=== PATIENT | male | born 1990 | race Caucasian/White ===

== ENCOUNTER 2016-10-28 14:11 | Observation (INO) | payer MEDICAID ==
[~2016-10-28] VITALS: Ht 175.3 cm; Wt 100.2 kg
[2016-10-28 15:19] LABS: HEMATOCRIT 43.9 % (39.2-51.8); HEMOGLOBIN 14.5 g/dL (13.7-18.0); WHITE BLOOD COUNT 10.5 x10^3/uL (3.4-10)
[2016-10-28 15:26] LABS: BLOOD UREA NITROGEN 11 mg/dL (7-18)
[2016-10-28 15:27] LABS: ACETAMINOPHEN < 2 mcg/mL (10-30)
[2016-10-28] MEDS ORDERED: LORazepam 1MG TABLET ONE (17:47)
[2016-10-28] MEDS: LORazepam 1MG TABLET PO PRN (17:49)
[2016-10-28] MEDS: VALPROIC ACID 250 MG CAPSULE PO SCH (17:51)
[2016-10-28] MEDS ORDERED: LABETALOL 5MG/ML, 20ML IVPush PRN (18:00)
[2016-10-28] MEDS ORDERED: GUAIFENESIN/DM 200-20MG, 10ML UDC PO PRN (18:00)
[2016-10-28] MEDS ORDERED: ONDANSETRON 2MG/ML, 2ML IVPush PRN (18:00)
[2016-10-28 18:44] LABS: DAU SCREEN DISCLAIMER
[2016-10-28] MEDS: QUETIAPINE 100MG TABLET PO SCH (21:07)
[2016-10-28 21:53] VITALS: BP 121/88
[2016-10-29] MEDS: VALPROIC ACID 250 MG CAPSULE PO SCH ×4 (00:47→20:48)
[2016-10-29 01:10] VITALS: BP 109/70
[2016-10-29 01:18] VITALS: BP 111/77
[2016-10-29] MEDS: QUETIAPINE 100MG TABLET PO SCH ×2 (08:43→11:48)
[2016-10-29] MEDS ORDERED: LORA1TAB PO (12:36)
[2016-10-29] MEDS ORDERED: SERT100T5 PO (12:36)
[2016-10-29] MEDS ORDERED: DIVA250T4 PO (12:36)
[2016-10-29] MEDS ORDERED: FLUT12AE INH (12:36)
[2016-10-29] MEDS ORDERED: CETI10TA32 PO (12:36)
[2016-10-29] MEDS ORDERED: QUET25TA5 PO (12:36)
[2016-10-29] MEDS: QUETIAPINE 25MG TABLET PO SCH (20:47)
[2016-10-29] MEDS: FLUTICASONE FUROATE 100MCG/INH INH SCH (20:55)
[2016-10-29 21:11] VITALS: BP 118/78
[2016-10-30 03:00] VITALS: BP 106/55
[2016-10-30 07:10] VITALS: BP 94/62
[2016-10-30] MEDS: QUETIAPINE 25MG TABLET PO SCH ×2 (08:43→20:56)
[2016-10-30] MEDS: VALPROIC ACID 250 MG CAPSULE PO SCH ×2 (08:43→20:55)
[2016-10-30] MEDS: SERTRALINE 100MG TABLET PO SCH ×3 (08:43→09:00)
[2016-10-30] MEDS: FLUTICASONE FUROATE 100MCG/INH INH SCH (08:46)
[2016-10-30 13:41] VITALS: BP 92/55
[2016-10-30 19:50] VITALS: BP 120/75
[2016-10-30] MEDS: ACETAMINOPHEN 325 MG TABLET PO PRN (20:56)
[2016-10-31] MEDS: VALPROIC ACID 250 MG CAPSULE PO SCH ×2 (09:25→19:58)
[2016-10-31] MEDS: QUETIAPINE 25MG TABLET PO SCH ×2 (09:25→19:58)
[2016-10-31] MEDS: SERTRALINE 100MG TABLET PO SCH (09:25)
[2016-10-31] MEDS: FLUTICASONE FUROATE 100MCG/INH INH SCH (09:25)
[2016-10-31 11:10] VITALS: BP 96/56
[2016-10-31 12:22] VITALS: BP 96/67
[2016-10-31] MEDS ORDERED: ZIPRASIDONE 20MG CAPSULE PO PRN (18:00)
[2016-10-31] MEDS ORDERED: ZIPRASIDONE 20 MG INJ IM PRN (18:00)
[2016-11-01 08:12] VITALS: BP 93/60
[2016-11-01] MEDS: QUETIAPINE 25MG TABLET PO SCH ×2 (08:40→20:01)
[2016-11-01] MEDS: VALPROIC ACID 250 MG CAPSULE PO SCH ×2 (08:40→20:00)
[2016-11-01] MEDS: SERTRALINE 100MG TABLET PO SCH (08:40)
[2016-11-01] MEDS: FLUTICASONE FUROATE 100MCG/INH INH SCH (12:14)
[2016-11-01] MEDS: LORazepam 1MG TABLET PO PRN (13:29)
[2016-11-01] MEDS ORDERED: ZIPRASIDONE 20 MG INJ IM PRN (19:00)
[2016-11-01] MEDS ORDERED: GUAIFENESIN/DM 200-20MG, 10ML UDC PO PRN (19:00)
[2016-11-01] MEDS ORDERED: ONDANSETRON 2MG/ML, 2ML IVPush PRN (19:00)
[2016-11-02 07:10] VITALS: BP 113/78
[2016-11-02] MEDS: LORazepam 1MG TABLET PO PRN (08:36)
[2016-11-02] MEDS: FLUTICASONE FUROATE 100MCG/INH INH SCH (08:36)
[2016-11-02] MEDS: VALPROIC ACID 250 MG CAPSULE PO SCH ×2 (08:36→19:36)
[2016-11-02] MEDS: SERTRALINE 100MG TABLET PO SCH (08:36)
[2016-11-02] MEDS: QUETIAPINE 25MG TABLET PO SCH ×2 (08:36→19:36)
[2016-11-02] MEDS: ACETAMINOPHEN 325 MG TABLET PO PRN (15:49)
[2016-11-02 20:44] VITALS: BP 118/82
[2016-11-02] MEDS: ZIPRASIDONE 20MG CAPSULE PO PRN (23:56)
[2016-11-03 07:30] VITALS: BP 120/91
[2016-11-03] MEDS: QUETIAPINE 25MG TABLET PO SCH ×2 (08:47→19:54)
[2016-11-03] MEDS: SERTRALINE 100MG TABLET PO SCH (08:48)
[2016-11-03] MEDS: FLUTICASONE FUROATE 100MCG/INH INH SCH (08:48)
[2016-11-03] MEDS: VALPROIC ACID 250 MG CAPSULE PO SCH ×2 (08:48→19:54)
[2016-11-03 19:11] VITALS: BP 129/84
[2016-11-03] MEDS: ZIPRASIDONE 20MG CAPSULE PO PRN (23:36)
[2016-11-04] MEDS: VALPROIC ACID 250 MG CAPSULE PO SCH ×2 (08:31→20:51)
[2016-11-04] MEDS: QUETIAPINE 25MG TABLET PO SCH ×3 (08:31→20:38)
[2016-11-04] MEDS: SERTRALINE 100MG TABLET PO SCH (08:31)
[2016-11-04] MEDS: FLUTICASONE FUROATE 100MCG/INH INH SCH (08:33)
[2016-11-04 19:48] VITALS: BP 136/85
[2016-11-04] MEDS ORDERED: QUETIAPINE 25MG TABLET PO SCH (21:00)
[2016-11-05 08:17] VITALS: BP 93/57
[2016-11-05] MEDS: FLUTICASONE FUROATE 100MCG/INH INH SCH (08:40)
[2016-11-05] MEDS: SERTRALINE 100MG TABLET PO SCH (08:40)
[2016-11-05] MEDS: QUETIAPINE 25MG TABLET PO SCH ×2 (08:42)
[2016-11-05] MEDS: VALPROIC ACID 250 MG CAPSULE PO SCH (08:42)
[2016-11-05] MEDS ORDERED: LORazepam 1MG TABLET PO PRN (12:30)
== END 2016-11-05 13:16 | disposition home or self-care (01) ==
LOC: ED 15:41 → EDIP 16:53 → 3NE 21:45 → 3E 10-31 15:53
PROVIDERS: ADMIT Internal Medicine; ATTEND Family Medicine
DX: R45.851 Suicidal ideations (principal); J45.909 Unspecified asthma, uncomplicated; F72 Severe intellectual disabilities; G47.33 Obstructive sleep apnea (adult) (pediatric); R60.0 Localized edema; E66.9 Obesity, unspecified; F31.9 Bipolar disorder, unspecified; I51.7 Cardiomegaly; Z87.891 Personal history of nicotine dependence; Z91.14 Patient's other noncompliance with medication regimen; Z91.19 Patient's noncompliance with other medical treatment and regimen
CPT/HCPCS: 36415; 80048; 80164; 80307; 80329; 81003; 82040; 85025; 99285; G0378; G0480

== ENCOUNTER 2017-02-05 16:31 | Emergency (ER) | payer MEDICAID ==
[~2017-02-05] VITALS: Ht 162.6 cm; Wt 114.0 kg
[~2017-02-05 16:31] MED LIST: CETI10TA32 PO; DIVA250T4 PO; FLUT12AE INH; LORA1TAB PO; QUET25TA5 PO; SERT100T5 PO
[2017-02-05 18:22] LABS: HEMOGLOBIN 14.2 g/dL (13.7-18.0); WHITE BLOOD COUNT 9.6 x10^3/uL (3.4-10)
[2017-02-05 18:29] LABS: ASPARTATE AMINO TRANSFERASE 38 U/L (15-37); BLOOD UREA NITROGEN 16 mg/dL (7-18)
[2017-02-05 18:32] LABS: ACETAMINOPHEN < 2 mcg/mL (10-30)
[2017-02-05 18:41] LABS: DAU SCREEN DISCLAIMER
[2017-02-05 19:09] VITALS: BP 121/78
[2017-02-05] MEDS ORDERED: LORazepam 1MG TABLET ONE (19:37)
[2017-02-05] MEDS ORDERED: LORazepam 1MG TABLET PO ONE (20:00)
== END 2017-02-05 19:56 | disposition home or self-care (01) ==
LOC: ED 19:55
DX: F33.9 Major depressive disorder, recurrent, unspecified (principal); F43.24 Adjustment disorder with disturbance of conduct; J45.909 Unspecified asthma, uncomplicated
CPT/HCPCS: 36415; 80053; 80164; 80307; 80329; 85025; 99284; G0479; G0480

== ENCOUNTER 2017-03-02 18:51 | Observation (INO) | payer MEDICAID ==
[~2017-03-02] VITALS: Ht 147.3 cm; Wt 107.0 kg
[2017-03-02 19:30] LABS: HEMATOCRIT 44.7 % (39.2-51.8); HEMOGLOBIN 15.2 g/dL (13.7-18.0); WHITE BLOOD COUNT 13.1 x10^3/uL (3.4-10)
[2017-03-02] MEDS ORDERED: LORazepam 0.5MG TABLET PO PRN (19:30)
[2017-03-02] MEDS ORDERED: PLEASE ENTER HEIGHT AND WEIGHT MC SCH (19:30)
[2017-03-02] MEDS ORDERED: DIPHENHYDRAMINE 25 MG CAPSULE PO PRN (19:30)
[2017-03-02 19:42] LABS: ACETAMINOPHEN < 2 mcg/mL (10-30); BLOOD UREA NITROGEN 16 mg/dL (7-18)
[2017-03-02 20:11] LABS: DAU SCREEN DISCLAIMER
[2017-03-02] MEDS ORDERED: BENZTROPINE 1 MG TABLET PO PRN (20:30)
[2017-03-02] MEDS ORDERED: LORazepam 1MG TABLET PO PRN (20:30)
[2017-03-02] MEDS ORDERED: ONDANSETRON ODT 4 MG PO PRN (20:30)
[2017-03-02] MEDS ORDERED: ENALAPRILAT 1.25 MG/ML, 2ML IVPush PRN (20:30)
[2017-03-02] MEDS ORDERED: QUETIAPINE 25MG TABLET PO SCH (21:00)
[2017-03-02 21:10] VITALS: BP 124/84
[2017-03-02] MEDS ORDERED: DIVALPROEX 250 MG TABLET.DR ONE (21:22)
[2017-03-02] MEDS ORDERED: HALOPERIDOL 5 MG TABLET ONE (21:22)
[2017-03-02] MEDS: DIVALPROEX 250 MG TABLET.DR PO SCH (21:28)
[2017-03-02] MEDS: HALOPERIDOL 5 MG TABLET PO SCH (21:28)
[2017-03-03 08:29] VITALS: BP 130/80
[2017-03-03] MEDS: SERTRALINE 100MG TABLET PO SCH (09:01)
[2017-03-03] MEDS: HALOPERIDOL 5 MG TABLET PO SCH (09:01)
[2017-03-03] MEDS: CETIRIZINE 10 MG TABLET PO SCH (09:02)
[2017-03-03] MEDS: DIVALPROEX 250 MG TABLET.DR PO SCH ×2 (09:02→20:07)
[2017-03-03 19:30] VITALS: BP 135/93
[2017-03-03] MEDS: ACETAMINOPHEN 325 MG TABLET PO PRN (20:07)
[2017-03-03] MEDS: HALOPERIDOL 5 MG TABLET PO PRN (20:08)
[2017-03-03] MEDS: LORazepam 1MG TABLET PO PRN (20:08)
[2017-03-04 07:42] VITALS: BP 116/75
[2017-03-04] MEDS: DIVALPROEX 250 MG TABLET.DR PO SCH ×2 (09:30→20:34)
[2017-03-04] MEDS: SERTRALINE 100MG TABLET PO SCH (09:30)
[2017-03-04] MEDS: CETIRIZINE 10 MG TABLET PO SCH (09:30)
[2017-03-04] MEDS: HALOPERIDOL 5 MG TABLET PO PRN (11:31)
[2017-03-04] MEDS: LORazepam 1MG TABLET PO PRN ×2 (11:31→13:01)
[2017-03-04 19:17] VITALS: BP 113/77
[2017-03-05] MEDS: FLUTICASONE FUROATE 100MCG/INH INH SCH (09:40)
[2017-03-05] MEDS: SERTRALINE 100MG TABLET PO SCH (09:49)
[2017-03-05] MEDS: CETIRIZINE 10 MG TABLET PO SCH (09:50)
[2017-03-05] MEDS: DIVALPROEX 250 MG TABLET.DR PO SCH ×2 (09:50→19:38)
[2017-03-05 11:18] VITALS: BP 126/82
[2017-03-05] MEDS: HALOPERIDOL 5 MG TABLET PO PRN (11:29)
[2017-03-05] MEDS: LORazepam 1MG TABLET PO PRN ×2 (11:29→19:42)
[2017-03-05 12:03] VITALS: BP_SYST 139; BP_SYST 150; BP_DIAS 85; BP_DIAS 86
[2017-03-05] MEDS: ACETAMINOPHEN 325 MG TABLET PO PRN (12:58)
[2017-03-05 19:05] VITALS: BP 142/86
[2017-03-06 08:00] VITALS: BP 134/78
[2017-03-06] MEDS: DIVALPROEX 250 MG TABLET.DR PO SCH ×2 (08:41→20:09)
[2017-03-06] MEDS: FLUTICASONE FUROATE 100MCG/INH INH SCH (08:41)
[2017-03-06] MEDS: SERTRALINE 100MG TABLET PO SCH (08:41)
[2017-03-06] MEDS: CETIRIZINE 10 MG TABLET PO SCH (08:42)
[2017-03-06] MEDS: LORazepam 1MG TABLET PO PRN (10:06)
[2017-03-06] MEDS ORDERED: QUETIAPINE 25MG TABLET PO ONE (13:00)
[2017-03-06 20:08] VITALS: BP 131/83
[2017-03-06] MEDS: QUETIAPINE 25MG TABLET PO SCH (20:09)
[2017-03-07 07:30] VITALS: BP 124/86
[2017-03-07] MEDS: DIVALPROEX 250 MG TABLET.DR PO SCH ×2 (08:09→20:05)
[2017-03-07] MEDS: QUETIAPINE 25MG TABLET PO SCH ×2 (08:10→20:05)
[2017-03-07] MEDS: SERTRALINE 100MG TABLET PO SCH (08:10)
[2017-03-07] MEDS: FLUTICASONE FUROATE 100MCG/INH INH SCH (08:10)
[2017-03-07] MEDS: CETIRIZINE 10 MG TABLET PO SCH (08:10)
[2017-03-07] MEDS: ACETAMINOPHEN 325 MG TABLET PO PRN ×2 (10:30→17:25)
[2017-03-07] MEDS ORDERED: QUETIAPINE 25MG TABLET PO PRN (14:00)
[2017-03-07 19:38] VITALS: BP 127/77
[2017-03-08] MEDS: CETIRIZINE 10 MG TABLET PO SCH (09:58)
[2017-03-08] MEDS: SERTRALINE 100MG TABLET PO SCH (09:58)
[2017-03-08] MEDS: QUETIAPINE 25MG TABLET PO SCH (09:58)
[2017-03-08 09:59] VITALS: BP 129/59
[2017-03-08] MEDS: DIVALPROEX 250 MG TABLET.DR PO SCH (09:59)
[2017-03-08] MEDS: FLUTICASONE FUROATE 100MCG/INH INH SCH (09:59)
[2017-03-08] MEDS: LORazepam 1MG TABLET PO PRN (10:17)
[2017-03-08 10:31] VITALS: BP 114/76
== END 2017-03-08 17:12 ==
LOC: ED 19:20 → EDIP 20:07 → INTOOBSV 20:07 → 3E 21:17 → 2N 03-04 13:36
PROVIDERS: ADMIT Family Medicine; ATTEND Family Medicine
DX: F31.9 Bipolar disorder, unspecified (principal); F90.9 Attention-deficit hyperactivity disorder, unspecified type; F43.25 Adjustment disorder with mixed disturbance of emotions and conduct; G47.33 Obstructive sleep apnea (adult) (pediatric); G40.909 Epilepsy, unspecified, not intractable, without status epilepticus; F79 Unspecified intellectual disabilities; E11.9 Type 2 diabetes mellitus without complications; F17.200 Nicotine dependence, unspecified, uncomplicated; Z79.899 Other long term (current) drug therapy; Z65.3 Problems related to other legal circumstances
CPT/HCPCS: 36415; 80048; 80307; 80329; 82040; 83036; 85025; 87324; 93005; 99285; G0378; Q0162; Q0177; G0479; G0480

== ENCOUNTER 2019-03-21 13:18 | Emergency (ER) | payer MEDICAID ==
[~2019-03-21] VITALS: Ht 167.6 cm; Wt 78.0 kg
[~2019-03-21 13:18] MED LIST changes: +SERT100T32 PO; -SERT100T5 PO
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
--- NOTE | 2019-03-21 14:01 | NUR ---
PT REMAINS UPRIGHT ON GURNEY AWAKE & CALM BUT RESISTANT TO CARE (INITIALLY REFUSING LABS & VS) REQUIRING MOD AMT ENCOURAGEMENT TO COOPERATE, RESPONDS TO MOST STAFF QUESTIONS, NAD, COMFORT MEASURES PROVIDED, PT REMAINS IN SAFE ENVIRONMENT, SITTER IN VIEW.
[2019-03-21 14:10] LABS: MICROSCOPIC INDICATED
[2019-03-21 14:11] LABS: CULTURE INDICATED? YES
[2019-03-21 14:17] LABS: AMPHETAMINE SCREEN, URINE Negative (Negative); BARBITURATE SCREEN, URINE Negative (Negative); BENZODIAZEPINE SCREEN, URINE Negative (Negative); CANNABINOID SCREEN, URINE Negative (Negative); COCAINE SCREEN, URINE Negative (Negative); METHADONE SCREEN, URINE Negative (Negative); OPIATE SCREEN, URINE Negative (Negative)
[2019-03-21 14:33] LABS: BASOPHILS # (AUTO) 0.04 x10^3/uL (0-0.1); BASOPHILS % (AUTO) 1 % (0-1); EOSINOPHILS # (AUTO) 0.25 x10^3/uL (0-0.4); EOSINOPHILS % (AUTO) 3 % (1-7); LYMPHOCYTES # (AUTO) 2.21 x10^3/uL (1-3.4); LYMPHOCYTES % (AUTO) 26 % (22-44); MD NO; MEAN CORPUSCULAR HEMOGLOBIN 30.7 pg (27.5-34.5); MEAN CORPUSCULAR HGB CONC 33.5 g/dL (33.2-36.2); MEAN CORPUSCULAR VOLUME 91.7 fL (81-97); MEAN PLATELET VOLUME 6.4 fL (7.4-10.4); MONOCYTES % (AUTO) 5 % (2-9); NEUTROPHILS # (AUTO) 5.75 x10^3/uL (1.8-6.8); NEUTROPHILS % (AUTO) 66 % (42-75); PLATELET COUNT 274 x10^3/uL (130-400); RED BLOOD COUNT 4.54 x10^6/uL (4.38-5.82)
[2019-03-21 14:46] LABS: ALBUMIN 3.7 g/dL (3.4-5.0); ANION GAP 4 mmol/L (5-15); CALCIUM 9.1 mg/dL (8.5-10.1); CHLORIDE 109 mmol/L (98-107); SALICYLATE LEVEL < 1.7 mg/dL (2.8-20.0)
[2019-03-21 14:49] LABS: ALANINE AMINOTRANSFERASE 17 U/L (12-78); ALKALINE PHOSPHATASE 58 U/L (45-117); CREATININE 0.65 mg/dL (0.7-1.3); TOTAL PROTEIN 7.3 g/dL (6.4-8.2)
--- NOTE | 2019-03-21 15:03 | NUR ---
PT UPRIGHT ON GURNEY AWAKE & CALM WITH ARMS CROSSED, OCCAS YELLING AT STAFF "I WANT TO GET THE FUCK OUT OF HERE! GIVE ME MY CLOTHES! I WANT TO FUCKING GO HOME!", REDIRECTION MINIMALLY HELPFUL, RESPONDS TO SOME STAFF QUESTIONS, NAD, COMFORT MEASURES PROVIDED, PT REMAINS IN SAFE ENVIRONMENT, SITTER IN VIEW.
--- NOTE | 2019-03-21 16:05 | NUR ---
PT REMAINS UPRIGHT ON GURNEY AWAKE & MOSTLY CALM, RESPONDS TO SOME STAFF QUESTIONS, NAD, COMFORT MEASURES PROVIDED, PT REMAINS IN SAFE ENVIRONMENT, SITTER IN VIEW. ASSESSED BY 3E RN.
--- NOTE | 2019-03-21 17:02 | NUR ---
PT CALLED HIS MOM & BECAME UPSET AT HER "FOR CALLING THE FUCKING VENEER SLICING MACHINE OPERATOR WHEN I WAS JUST SITTING THERE PLAYING MY VIDEO GAMES", PT WAS TOLD TO SPEAK RESPECTFULLY WHILE ON THE PHONE & PT HUNG UP & RETURNED TO ROOM VOLUNTARILY, PT UPRIGHT ON GURNEY AWAKE & CALM, RESPONDS TO MOST STAFF QUESTIONS, NAD, COMFORT MEASURES PROVIDED, PT REMAINS IN SAFE ENVIRONMENT, SITTER IN VIEW.
--- NOTE | 2019-03-21 18:05 | NUR ---
PT REMAINS UPRIGHT ON GURNEY AWAKE & CALM, RESPONDS TO SOME STAFF QUESTIONS, NAD, COMFORT MEASURES PROVIDED, PT REMAINS IN SAFE ENVIRONMENT, SITTER IN VIEW. PT REFUSED DINNER TRAY & PROVIDED REQUESTED SOUP & SPRITE.
--- NOTE | 2019-03-21 18:38 | NUR ---
PACKET FAXED TO [facility] AND [facility]
--- NOTE | 2019-03-21 19:06 | NUR ---
REPORT GIVEN TO DAMION
--- NOTE | 2019-03-21 19:20 | NUR ---
REPORT RECEIVED AND CARE ASSUMED. PT REQUESTING MOTRIN FOR MILD FREGOSO--STATES HE IS NOT UNUSUAL FOR HIM. DENIES SI AT THIS TIME. DISCUSSED THAT PT WILL BE IN ER TONIGHT UNTIL A FURTHER PLAN IS DECIDED. PT IS COOPORATIVE WITH STAFF. WARM BLANKETS AND PILLOW GIVEN. DENIES FURTHER NEEDS. ROOM SECURED AND SITTER IN PLACE
[2019-03-21] MEDS ORDERED: IBUPROFEN 200 MG TABLET ONE (19:22)
[2019-03-21] MEDS ORDERED: IBUPROFEN 200 MG TABLET PO ONE (19:30)
--- NOTE | 2019-03-21 20:30 | NUR ---
[facility] and milk provided. Pt denies further needs. Room secured and sitter in place.
--- NOTE | 2019-03-21 22:30 | NUR ---
PT PLACED ON HOSPITAL BED FOR COMFORT. PO FLUIDS GIVEN PRN. NO FURTHER NEEDS EXPRESSED. ROOM SECURED AND SITTER IN PLACE.
--- NOTE | 2019-03-21 23:15 | NUR ---
PT WATCHING TV WITH NO S/S OF ACUTE DISTRESS. SITTER IN PLACE.
--- NOTE | 2019-03-22 00:15 | NUR ---
PT SLEEPING WITH RESP EVEN AND UNLABORED. SITTER IN PLACE.
--- NOTE | 2019-03-22 01:30 | NUR ---
Pt sleeping with resp even and unlabored. Sitter in place and room secured.
--- NOTE | 2019-03-22 02:35 | NUR ---
PT SLEEPING WITH RESP EVEN AND UNLABORED. SITTER IN PLACE WITH ROOM SECURED.
--- NOTE | 2019-03-22 03:30 | NUR ---
PT SLEEPING WITH RESP EVEN AND UNLABORED. SITTER IN PLACE AND ROOM REMAINS SECURED.
--- NOTE | 2019-03-22 04:20 | NUR ---
PT SLEEPING WITH RESP EVEN AND UNLABORED. SITTER IN PLACE.
--- NOTE | 2019-03-22 05:29 | NUR ---
pt sleeping. no acute changes noted. sitter in place.
--- NOTE | 2019-03-22 06:39 | NUR ---
Pt sleeping. No acute chnages. Sitter in place.
--- NOTE | 2019-03-22 06:53 | NUR ---
REPORT TO DYLAN DUMONT
--- NOTE | 2019-03-22 07:15 | NUR ---
REC REPORT PT RESTING SITTER IN THE SUMMERS
--- NOTE | 2019-03-22 08:17 | NUR ---
MEAL GIVEN HAS BEEN UP FOR A WALK
[2019-03-22] MEDS ORDERED: LORazepam 1MG TABLET ONE (09:10)
[2019-03-22] MEDS ORDERED: LORazepam 1MG TABLET PO ONE (09:30)
--- NOTE | 2019-03-22 17:30 | NUR ---
REPORT FROM JULIA RICHARDSON. PATIENT RESTING IN ROOM. ROOM SECURED. SITTER OUTSIDE ROOM.
--- NOTE | 2019-03-22 18:36 | NUR ---
PATIENT GIVEN MEAL TRAY. POC UPDATED. WILL CONTINUE TO MONITOR.
--- NOTE | 2019-03-22 18:50 | NUR ---
REPORT TO JULIA ENG
--- NOTE | 2019-03-22 20:55 | NUR ---
BALDEMAR RN: PT RESTING ON GURNEY WITH EYES CLOSED, RESPIRATIONS EVEN AND UNLABORED. ROOM REMAINS SECURE, SITTER OUTSIDE DOOR MONITORING PT.
--- NOTE | 2019-03-23 01:14 | NUR ---
BREAK RN: PT CONTINUES TO SLEEP. ROOM REMAINS SECURE. SITTER OUTSIDE DOOR
--- NOTE | 2019-03-23 03:00 | NUR ---
PT SLEEPING WITH RESP EVEN AND UNLABORED. SITTER IN PLACE.
--- NOTE | 2019-03-23 04:26 | NUR ---
PT SLEEPING WITH RESP EVEN AND UNLABORED. SITTER IN PLACE.
--- NOTE | 2019-03-23 07:21 | NUR ---
PT PROVIDED WITH SHOWER SUPPLIES, SHOWERING NOW. SITTER WITHIN EYESIGHT.
--- NOTE | 2019-03-23 07:23 | NUR ---
BREAKFAST TRAY ORDERED FOR PT.
--- NOTE | 2019-03-23 08:17 | NUR ---
PT FINISHED WITH SHOWER. RESTING ON GURSTWA. NADN. DENIES FURTHER NEEDS. ROOM SECURE. SITTER IN DERBYWAY.
[2019-03-23 08:26] VITALS: BP 87/46
--- NOTE | 2019-03-23 08:28 | NUR ---
PT PROVIDED WITH BREAKFAST TRAY AT THIS TIME.
--- NOTE | 2019-03-23 09:41 | NUR ---
PT RESTING ON RAYO. GOSIA. SITTER IN HALLWAY. ROOM SECURE.
--- NOTE | 2019-03-23 09:49 | NUR ---
TASK RN: PT RESTING IN BED. SITTER REMAINS AT BEDSIDE. ROOM REMAINS SECURE.
--- NOTE | 2019-03-23 10:06 | NUR ---
PT USING PHONE WITH SITTER AT SIDE- CALLING HIS MOTHER WHO CALLED TO CHECK ON HIM THIS AM.
--- NOTE | 2019-03-23 10:16 | NUR ---
THIS RN SPOKE WITH PT'S MOTHER (CALLED HER BACK AFTER SHE PHONED THIS AM). MOTHER ASKED FOR UPDATE ON SON AND ASKED FOR POC. THIS RN LET MOTHER KNOW POC. ALL QUESTIONS ANSWERED.
--- NOTE | 2019-03-23 11:29 | NUR ---
LUNCH TRAY ORDERED FOR PT.
--- NOTE | 2019-03-23 11:38 | NUR ---
TASK RN: PT RESTING IN BED. SITTER REMAINS AT BEDSIDE. ROOM REMAINS SECURE.
--- NOTE | 2019-03-23 12:07 | NUR ---
PT PROVIDED WITH LUNCH TRAY AT THIS TIME.
--- NOTE | 2019-03-23 12:31 | NUR ---
PT PROVIDED WITH WARM BLANKET. SITTER IN HALLWAY. ROOM SECURE. NADN. DENIES FURTHER NEEDS.
--- NOTE | 2019-03-23 12:36 | NUR ---
PT PROVIDED WITH HOT TEA. SITTER IN HALLWAY. ROOM SECURE.
--- NOTE | 2019-03-23 13:22 | NUR ---
PSYCH POWER GENERATION PLANT OPERATOR AT BEDSIDE ASSESSING PT NOW.
--- NOTE | 2019-03-23 13:39 | NUR ---
PT AWARE OF POC RE: DC AT 1500. RESTING ON HOSPITAL BED. NADN. SITTER IN HALLWAY. ROOM SECURE.
--- NOTE | 2019-03-23 14:32 | NUR ---
PT PROVIDED WITH BOTH BAGS OF BELONGINGS. GETTING DRESSED NOW.
== END 2019-03-23 15:33 | disposition home or self-care (01) ==
LOC: ED 18:10
DX: R45.851 Suicidal ideations (principal); F29 Unspecified psychosis not due to a substance or known physiological condition; E11.9 Type 2 diabetes mellitus without complications; J45.909 Unspecified asthma, uncomplicated
CPT/HCPCS: 36415; 80053; 80307; 81001; 85025; 87086; 99283

== ENCOUNTER 2020-04-23 13:54 | Emergency (ER) | payer MEDICAID ==
[~2020-04-23] VITALS: Ht 167.6 cm; Wt 74.2 kg
[2020-04-23 14:59] LABS: MICROSCOPIC NOT IND
[2020-04-23 15:17] LABS: AMPHETAMINE SCREEN, URINE Negative (Negative); BARBITURATE SCREEN, URINE Negative (Negative); BENZODIAZEPINE SCREEN, URINE Negative (Negative); CANNABINOID SCREEN, URINE Negative (Negative); COCAINE SCREEN, URINE Negative (Negative); METHADONE SCREEN, URINE Negative (Negative); OPIATE SCREEN, URINE Negative (Negative)
[2020-04-23] MEDS ORDERED: LORazepam 1MG TABLET PO ONE (15:30)
[2020-04-23] MEDS ORDERED: LORazepam 1MG TABLET ONE (15:34)
--- NOTE | 2020-04-23 15:42 | NUR ---
PT REFUSING VITAL SIGN'S. WAS ABLE TO MEDICATE PER MAR. JUNIOR STAFF ACCOUNTANT AT BEDSIDE. PROVIDER AT BEDSIDE.
[2020-04-23 16:52] LABS: BASOPHILS % (AUTO) 0 % (0-1); EOSINOPHILS % (AUTO) 2 % (1-7); LYMPHOCYTES % (AUTO) 9 % (22-44); MEAN CORPUSCULAR HEMOGLOBIN 30.1 pg (27.5-34.5); MEAN CORPUSCULAR HGB CONC 33.4 g/dL (33.2-36.2); MEAN PLATELET VOLUME 6.5 fL (7.4-10.4); MONOCYTES % (AUTO) 9 % (2-9); NEUTROPHILS % (AUTO) 80 % (42-75); PLATELET COUNT 224 x10^3/uL (130-400); RED BLOOD COUNT 4.76 x10^6/uL (4.38-5.82); RED CELL DISTRIBUTION WIDTH 13.4 % (9.4-14.8)
[2020-04-23 16:53] LABS: MD NO
[2020-04-23 16:57] LABS: ALANINE AMINOTRANSFERASE 12 U/L (12-78); ALBUMIN 4.1 g/dL (3.4-5.0); ANION GAP 5 mmol/L (5-15); CHLORIDE 113 mmol/L (98-107); CREATININE 0.82 mg/dL (0.7-1.3)
[2020-04-23 16:58] LABS: SALICYLATE LEVEL < 1.7 mg/dL (2.8-20.0)
[2020-04-23 16:59] LABS: ALKALINE PHOSPHATASE 60 U/L (45-117); BILIRUBIN,TOTAL 0.6 mg/dL (0.2-1.0); TOTAL PROTEIN 7.6 g/dL (6.4-8.2)
--- NOTE | 2020-04-23 17:00 | NUR ---
PT AGRRES TO LAB DRAW. LAB NOTIFIED. PT'S BROTHER AT BEDSIDE FOR SUPPORT. PT LESS ANXIOUS AFTER CERTIFIED CONTROL SYSTEMS TECHNICIAN.
--- NOTE | 2020-04-23 19:05 | NUR ---
REPORT RECEIVED FROM ANEL Mcdaniels RN. PT RESTING ON GURNEY WITH DONOR RELATIONS OFFICER AT BS. PT EXPERIENCING HALLUCINATIONS/DELUSIONS, PT PLEASANT AND COOPERATIVE. MONITORING IN PLACE. ALL SAFETY MEASURES IN PLACE.
--- NOTE | 2020-04-23 20:47 | NUR ---
TP RN: PT COVID POSITIVE AND THEREFORE WILL NOT BE ACCEPTED TO [facility]. LITHOGRAPHY CONTACT WORKER MARIELENA NOTIFIED
--- NOTE | 2020-04-23 22:46 | NUR ---
SEFERINO RN: PACKET FAXED TO [facility], [facility], AND [facility]
--- NOTE | 2020-04-23 23:17 | NUR ---
REPORT GIVEN TO JULIA ROBLES
--- NOTE | 2020-04-23 23:17 | NUR ---
TP RN: PT DENIED BY [facility] DUE TO FEE FOR SERVICE
--- NOTE | 2020-04-23 23:18 | NUR ---
REPORT FROM KISHAN DUMONT. PT SITTING IN BED. PT HAS NO NEEDS AT THIS TIME. SITTER IN VIEW OF PT.
--- NOTE | 2020-04-24 01:09 | NUR ---
PT MOVED TO HOSPITAL BED. VSS. SITTER IN VIEW OF PT.
--- NOTE | 2020-04-24 02:38 | NUR ---
PT SLEEPING. EVEN RISE AND FALL OF CHEST OBSERVED. SITTER IN VIEW OF PT.
--- NOTE | 2020-04-24 04:09 | NUR ---
PT SLEEPING. EVEN RISE AND FALL OF CHEST OBSERVED. SITTER IN VIEW OF PT.
--- NOTE | 2020-04-24 05:18 | NUR ---
PT UP TO BATHROOM. PT BACK IN BED. SITTER IN VIEW OF PT.
--- NOTE | 2020-04-24 06:12 | NUR ---
PT SITTING IN BED. PT HAS NO NEEDS AT THIS TIME. SITTER IN VIEW OF PT.
--- NOTE | 2020-04-24 07:00 | NUR ---
RECEIVED REPORT FROM TRAVIS. PT SLEEPING CALMLY ON HOSPITAL BED, NAD/VSS, NO NEEDS AT THIS TIME, CALL LIGHT WITHIN REACH. Addendum: 04/24/20 at 0708 by TEVIN RECEIVED REPORT FROM TRAVIS. PT SLEEPING CALMLY ON HOSPITAL BED, NAD, NO NEEDS AT THIS TIME, CALL LIGHT WITHIN REACH.
[2020-04-24 08:02] VITALS: BP 119/78
--- NOTE | 2020-04-24 08:02 | NUR ---
PT AWAKE & RESTLESS, REPEATEDLY ASKING FOR SHOWER, PT REDIRECTABLE & COOPERATIVE, ANSWERS STAFF QUESTIONS, NAD, BREAKFAST TRAY GIVEN & OTHER COMFORT MEASURES PROVIDED, PT REMAINS IN SAFE ENVIRONMENT, SITTER IN VIEW.
--- NOTE | 2020-04-24 09:04 | NUR ---
PT CONTINUES TO BE RESTLESS BUT REDIRECTABLE & COOPERATIVE, ANSWERS STAFF QUESTIONS, NAD, COMFORT MEASURES PROVIDED, PT REMAINS IN SAFE ENVIRONMENT, SITTER IN VIEW.
--- NOTE | 2020-04-24 09:45 | NUR ---
PT IN SHOWER, ALL BPERSONAL BELONGINGS IN BAG X1 PLACED IN LOCKER.
--- NOTE | 2020-04-24 11:03 | NUR ---
PT AWAKE & CALMER AFTER SHOWER, PT EASILY REDIRECTABLE & COOPERATIVE, ANSWERS STAFF QUESTIONS, NAD, BREAKFAST TRAY GIVEN & OTHER COMFORT MEASURES PROVIDED, PT REMAINS IN SAFE ENVIRONMENT, SITTER IN VIEW.
--- NOTE | 2020-04-24 12:00 | NUR ---
PT AWAKE & CALM, REDIRECTABLE & COOPERATIVE, ANSWERS STAFF QUESTIONS, NAD, NO NEEDS AT THIS TIME, PT REMAINS IN SAFE ENVIRONMENT, SITTER IN VIEW.
== END 2020-04-24 13:31 ==
LOC: ED 15:01
DX: U07.1 COVID-19 (principal); F23 Brief psychotic disorder; F31.9 Bipolar disorder, unspecified
CPT/HCPCS: 36415; 80053; 80299; 80307; 80320; 80329; 81003; 85025; 87635; 99283; G0480